=== PATIENT | male | born 1970 | race Two or more races ===

== ENCOUNTER 2017-10-17 13:47 | Emergency (ER) | payer SELFPAY ==
[~2017-10-17] VITALS: Ht 165.1 cm; Wt 90.7 kg
[~2017-10-17 13:47] MED LIST: NAPROSYN500 M1 ORAL; NKM; ONDANSETRON ODT4 MG ORAL; PERCOCET 5-3251 EACH ORAL; TAMSULOSIN HCL0.4 MG ORAL
--- NOTE | 2017-10-17 14:28 | Emergency Room Report ---
History of Present Illness General Chief Complaint: Male Urogenital Problems Source: Patient Present Illness HPI This patient states that yesterday evening he noted some blood in his urine. He states he's also had some right sided flank pain radiating to his right groin. He states that the pain is mild and not severe. He denies fever or chills. He denies nausea or vomiting. He denies dysuria. He denies trauma or recent illness. He admits that he did have a kidney stone about 1 year ago. He has no other complaints. Allergies: Coded Allergies: No Known Allergies (Unverified , 02/13/16) Patient History Past Medical History: see triage record, other - Arthritis Past Surgical History: none Pertinent Family History: none Social History: Denies: smoking, alcohol use, drug use Reviewed Nursing Documentation: PMH: Agreed, PSxH: Agreed Nursing Documentation-PMH Past Medical History: No History, Except For Review of Systems All Other Systems: negative except mentioned in HPI Physical Exam Vital Signs Date Time Temp Pulse Resp B/P (MAP) Pulse Ox O2 Delivery O2 Flow Rate FiO2 10/17/17 13:55 98.0 79 18 166/102 96 Room Air 98.1 Sp02 EP Interpretation: reviewed, normal General Appearance: no apparent distress, alert, GCS 15, non-toxic Head: normocephalic, atraumatic Eyes: bilateral eye normal inspection, bilateral eye PERRL ENT: hearing grossly normal, normal pharynx, no angioedema, normal voice Neck: full range of motion, supple/symm/no masses Respiratory: chest non-tender, lungs clear, normal breath sounds, speaking full sentences Cardiovascular #1: regular rate, rhythm, no edema Gastrointestinal: normal bowel sounds, non tender, soft, non-distended, no guarding, no rebound Rectal: deferred Genitourinary: normal inspection Musculoskeletal: back normal, gait/station normal, normal range of motion, non- tender Neurologic: alert, oriented x3, responsive, motor strength/tone normal, sensory intact, speech normal Psychiatric: judgement/insight normal, memory normal, mood/affect normal, no suicidal/homicidal ideation Skin: normal color, no rash, warm/dry, well hydrated Medical Decision Making Diagnostic Impression: Primary Impression: UTI (urinary tract infection) ER Course This patient presents with hematuria and flank pain. Highest on my differential diagnosis is ureterolithiasis, therefore I did obtain a CT of the abdomen and pelvis which showed no evidence of urolithiasis on the right. There was an incidental finding of a 7 mm stone in the left kidney. However no urolithiasis. The bladder wall is thickened. Urinalysis shows findings consistent with an infection. The patient states that he is not at risk for sexually transmitted disease. He was informed that he should follow up closely with the urologist. He should get his prostate and bladder checked. He does have bladder wall thickening which could be infectious related versus cancer. He was educated extensively on these concerns. He indicated understanding and intention to do so. Laboratory Tests Test 10/17/17 14:01 10/17/17 14:43 Urine Color Pale yellow Urine Appearance Clear Urine pH 7 (4.5-8.0) Urine Specific [place] 1.010 (1.005-1.035) Urine Protein Negative (NEGATIVE) Urine Glucose (UA) Negative (NEGATIVE) Urine Ketones Negative (NEGATIVE) Urine Occult Blood 5+ (NEGATIVE) H Urine Nitrite Negative (NEGATIVE) Urine Bilirubin Negative (NEGATIVE) Urine Urobilinogen Normal MG/DL (0.0-1.0) Urine Leukocyte Esterase 1+ (NEGATIVE) H Urine RBC 15-20 /HPF (0 - 0) H Urine WBC 5-10 /HPF (0 - 0) H Urine Squamous Epithelial Cells None /LPF (NONE/OCC) Urine Amorphous Sediment Few /LPF (NONE) H Urine Bacteria Moderate /HPF (NONE) H White Blood Count 8.6 K/UL (4.8-10.8) Red Blood Count 4.28 M/UL (4.70-6.10) L Hemoglobin 12.8 G/DL (14.2-18.0) L Hematocrit 38.1 % (42.0-52.0) L Mean Corpuscular Volume 89 FL (80-99) Mean Corpuscular Hemoglobin 29.9 PG (27.0-31.0) Mean Corpuscular Hemoglobin Concent 33.6 G/DL (32.0-36.0) Red Cell Distribution Width 12.4 % (11.6-14.8) Platelet Count 370 K/UL (150-450) Mean Platelet Volume 6.4 FL (6.5-10.1) L Neutrophils (%) (Auto) 54.7 % (45.0-75.0) Lymphocytes (%) (Auto) 25.4 % (20.0-45.0) Monocytes (%) (Auto) 10.3 % (1.0-10.0) H Eosinophils (%) (Auto) 8.6 % (0.0-3.0) H Basophils (%) (Auto) 1.0 % (0.0-2.0) Sodium Level 137 MMOL/L (136-145) Potassium Level 3.3 MMOL/L (3.5-5.1) L Chloride Level 102 MMOL/L (98-107) Carbon Dioxide Level 27 MMOL/L (21-32) Anion Gap 8 mmol/L (5-15) Blood Urea Nitrogen 14 mg/dL (7-18) Creatinine 0.8 MG/DL (0.55-1.30) Estimate Glomerular Filtration Rate > 60 mL/min (>60) Glucose Level 96 MG/DL (74-106) Calcium Level 9.2 MG/DL (8.5-10.1) Total Bilirubin 0.4 MG/DL (0.2-1.0) Aspartate Amino Transferase (AST) 22 U/L (15-37) Alanine Aminotransferase (ALT) 29 U/L (12-78) Alkaline Phosphatase 72 U/L (46-116) Total Protein 8.7 G/DL (6.4-8.2) H Albumin 3.3 G/DL (3.4-5.0) L Globulin 5.4 g/dL Albumin/Globulin Ratio 0.6 (1.0-2.7) L CT/MRI/US Diagnostic Results CT/MRI/US Diagnostic Results : Imaging Test Ordered: CT abd/pelvis Impression Findings: There is minimal posterior basilar atelectasis. The gallbladder is contracted. Interval development of a 7 mm stone in the central part of the left kidney demonstrated. This is in the lower pole calyx of the left kidney. There is no hydronephrosis demonstrated. There is probable mild thickening of the wall of the urinary bladder. The right kidney is unremarkable. Diverticula are demonstrated within the colon. Normal retrocecal appendix demonstrated. There is a small umbilical hernia containing fat. Small retroperitoneal nodes are present nonspecific in nature. There is no free fluid. No evidence of bowel obstruction. There is narrowing of intervertebral discs and accompanying endplate osteophyte formation. Hypertrophied facet joints also demonstrated. IMPRESSION: Development of a 7 mm stone in the lower pole left kidney, nonobstructive. Other central findings as above. Normal appendix noted Last Vital Signs Date Time Temp Pulse Resp B/P (MAP) Pulse Ox O2 Delivery O2 Flow Rate FiO2 10/17/17 13:55 98.0 79 18 166/102 96 Room Air 98.1 Status: improved Disposition: HOME, SELF-CARE Condition: Improved Patient Instructions: Urinary Tract Infection SHORTY CLEMONS D.O. Oct 17, 2017 14:28
--- NOTE | 2017-10-17 14:42 | Diagnostic Imaging Report ---
Indication: Abdominal pain Technique: Continuous helical transaxial imaging of the abdomen and pelvis was obtained from the lung bases to the pubic symphysis. No intravenous contrast was administered. Coronal 2-D reformats were also obtained. Automatic Exposure Control was utilized. Total Dose length Product (DLP): 1075.[address] Dose Index Volume (CTDIvol): 19.75 mGy Comparison: 02/13/2016 Findings: There is minimal posterior basilar atelectasis. The gallbladder is contracted. Interval development of a 7 mm stone in the central part of the left kidney demonstrated. This is in the lower pole calyx of the left kidney. There is no hydronephrosis demonstrated. There is probable mild thickening of the wall of the urinary bladder. The right kidney is unremarkable. Diverticula are demonstrated within the colon. Normal retrocecal appendix demonstrated. There is a small umbilical hernia containing fat. Small retroperitoneal nodes are present nonspecific in nature. There is no free fluid. No evidence of bowel obstruction. There is narrowing of intervertebral discs and accompanying endplate osteophyte formation. Hypertrophied facet joints also demonstrated. IMPRESSION: Development of a 7 mm stone in the lower pole left kidney, nonobstructive. Other central findings as above. Normal appendix noted The CT scanner at [facility] is accredited by the [employer] and the scans are performed using dose optimization techniques as appropriate to a performed exam including Automatic Exposure control.
[2017-10-17 14:45] VITALS: BP 135/95
[2017-10-17 15:11] LABS: APPEARANCE,URINE CLEAR; BILIRUBIN, URINE NEGATIVE (NEGATIVE); COLOR,URINE PALE YELLOW; GLUCOSE, URINE (UA) NEGATIVE (NEGATIVE); KETONES,URINE NEGATIVE (NEGATIVE); LEUKOCYTE ESTERASE ,URINE 1+ (NEGATIVE); NITRITE,URINE NEGATIVE (NEGATIVE); PH,URINE 7 (4.5-8.0); PROTEIN,URINE NEGATIVE (NEGATIVE); UROBILINOGEN,URINE NORMAL MG/DL (0.0-1.0)
[2017-10-17 15:34] LABS: EOSINOPHILS % (AUTO) 8.6 % (0.0-3.0); HEMATOCRIT 38.1 % (42.0-52.0); HEMOGLOBIN 12.8 G/DL (14.2-18.0); LYMPHOCYTES % (AUTO) 25.4 % (20.0-45.0); MEAN CORPUSCULAR VOLUME 89 FL (80-99); MONOCYTES % (AUTO) 10.3 % (1.0-10.0); NEUTROPHILS % (AUTO) 54.7 % (45.0-75.0); PLATELET COUNT 370 K/UL (150-450); RED BLOOD COUNT 4.28 M/UL (4.70-6.10); RED CELL DISTRIBUTION WIDTH 12.4 % (11.6-14.8); WHITE BLOOD COUNT 8.6 K/UL (4.8-10.8)
[2017-10-17 15:44] LABS: ANION GAP 8 mmol/L (5-15); BLOOD UREA NITROGEN 14 mg/dL (7-18); CALCIUM 9.2 MG/DL (8.5-10.1); CARBON DIOXIDE 27 MMOL/L (21-32); CHLORIDE 102 MMOL/L (98-107); CREATININE 0.8 MG/DL (0.55-1.30); POTASSIUM 3.3 MMOL/L (3.5-5.1); SODIUM 137 MMOL/L (136-145)
[2017-10-17 15:51] LABS: ALANINE AMINOTRANSFERASE 29 U/L (12-78); ALBUMIN 3.3 G/DL (3.4-5.0); ALBUMIN/GLOBULIN RATIO 0.6 (1.0-2.7); ALKALINE PHOSPHATASE 72 U/L (46-116); ASPARTATE AMINO TRANSFERASE 22 U/L (15-37); BILIRUBIN,TOTAL 0.4 MG/DL (0.2-1.0)
[2017-10-17] MEDS ORDERED: KEFLEX500 MG ORAL (17:08)
[2017-10-17 17:15] VITALS: BP 135/95
== END 2017-10-17 17:15 | disposition home or self-care (01) ==
LOC: EMR 15:30
DX: N39.0 Urinary tract infection, site not specified (principal); R31.9 Hematuria, unspecified; N20.0 Calculus of kidney
CPT/HCPCS: 36415; 74176; 80053; 81003; 85025; 87086; 96361; 96374; 99284